=== PATIENT | female | born 1980 | race American Indian/Alaskan Native ===

== ENCOUNTER 2017-05-06 16:40 | Emergency (ER) | payer BC ==
[2017-05-06] MEDS ORDERED: Sodium Chloride 0.9% 10 ML Syringe FLUSH PRN (17:52)
[2017-05-06] MEDS ORDERED: Ketorolac 30 MG/ML SDV IVPUSH ONE (17:53)
[2017-05-06] MEDS ORDERED: Ondansetron 4 MG/2 ML SDV IV ONE (17:53)
[2017-05-06] MEDS ORDERED: Sodium Chloride 0.9% 1,000 ML IV ONE (17:53)
[2017-05-06 18:29] LABS: ANION GAP 12.1; CHLORIDE,CL 103 mmol/L (101-111); SODIUM,NA 138 mmol/L (135-145)
[2017-05-06 19:16] VITALS: BP 127/70
--- NOTE | 2017-05-07 09:04 | EDM.PDOC ---
Scribed by Lili Quintana 05/06/17 [id number] for Ade Can NP ED HPI GENERAL MEDICAL PROBLEM - General Chief Complaint: Headache Stated Complaint: HEADACHE [phone] Time Seen by Provider: 05/06/17 17:35 Source of Information: Reports: Patient, RN, RN Notes Reviewed History Limitations: Reports: No Limitations - History of Present Illness INITIAL COMMENTS - FREE TEXT/NARRATIVE: Patient presents to ER with complaint of a headache since Tuesday. It is pulsating as if her head is going to explode. She has had nausea and vomiting. This is "worst headache ever". She has tried Excedrin migraine OTC without any help. She has had chills and diarrhea. She has no chest pain or shortness of breath. She denies any numbness, tingling or vision symptoms. Location: Reports: Head Quality: Reports: Ache Severity: Severe Improves with: Reports: None Worsens with: Reports: None Associated Symptoms: Reports: No Other Symptoms Headache Pain Score (Numeric/FACES): 7 - Related Data Allergies Allergy/AdvReac Type Severity Reaction Status Date / Time calero Allergy Hives Verified 05/06/17 17:02 Home Meds: Home Meds FLUoxetine [PROzac] 2 tab PO DAILY 04/01/16 [History] Ibuprofen 200 mg PO Q6HR PRN 04/01/16 [History] Past Medical History - Past Health History Medical/Surgical History: Denies Medical/Surgical History HEENT History: Reports: None Cardiovascular History: Reports: None Respiratory History: Reports: None Gastrointestinal History: Reports: GERD, Irritable Bowel Syndrome Genitourinary History: Reports: None 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 Tattoo's - Infectious Disease History Infectious Disease History: Reports: Chicken Pox - Past Surgical History Head Surgeries/Procedures: Reports: None Cardiovascular Surgical History: Reports: None Female Surgical History: Reports: None Musculoskeletal Surgical History: Reports: Other (See Below) Social & Family History - Family History Family Medical History: Noncontributory - Tobacco Use Smoking Status *Q: Former Smoker Years of Tobacco use: 6 Used Tobacco, but Quit: Yes Month Tobacco Last Used: ? Second Hand Smoke Exposure: No - Caffeine Use Caffeine Use: Reports: Coffee - Recreational Drug Use Recreational Drug Use: No ED ROS GENERAL - Review of Systems Review Of Systems: ROS reveals no pertinent complaints other than HPI. - Physical Exam Exam: See Below Exam Limited By: No Limitations General Appearance: Moderate Distress, Other (tearful) Eye Exam: Bilateral Eye: Normal Inspection Ears: Normal External Exam, Normal Canal, Hearing Grossly Normal, Normal TMs Nose: Normal Inspection, Normal Mucosa, No Blood Throat/Mouth: Normal Inspection, Normal Lips, Normal Teeth, Normal Gums, Normal Oropharynx, Normal Voice, No Airway Compromise Head Exam: Atraumatic, Normocephalic Neck: Normal Inspection, Supple, Non-Tender, Full Range of Motion Respiratory/Chest: No Respiratory Distress, Lungs Clear, Normal Breath Sounds, No Accessory Muscle Use, Chest Non-Tender Cardiovascular: Normal Peripheral Pulses, Regular Rate, Rhythm, No Edema, No Gallop, No JVD, No Murmur, No Rub GI/Abdominal: Normal Bowel Sounds, Soft, Non-Tender, No Organomegaly, No Distention, No Abnormal Bruit, No Mass (Female) Exam: Deferred Rectal (Female) Exam: Deferred Neuro Exam (Abbreviated): Alert, Oriented, CN II-XII Intact, Normal Cognition, Normal Gait, Normal Reflexes, No Motor/Sensory Deficits Back Exam: Normal Inspection, Full Range of Motion, NT Extremities: Normal Inspection, Normal Range of Motion, Non-Tender, No Pedal Edema, Normal Capillary Refill Psychiatric: Tearful Skin Exam: Warm, Dry, Intact, Normal Color, No Rash Course - Vital Signs Last Recorded V/S: Last Vital Signs Temp 97.4 F 05/06/17 19:15 Pulse 79 05/06/17 19:15 Resp 18 05/06/17 19:15 BP 127/70 05/06/17 19:15 Pulse Ox 100 05/06/17 19:15 - Orders/Labs/Meds Orders: Active Orders 24 hr Category Date Time Status Peripheral IV Care [RC] . DIRECTED Care 05/06/17 17:53 Active Peripheral IV Insertion Adult [OM.PC] Stat Oth 05/06/17 17:52 Ordered Labs: Laboratory Tests 05/06/17 05/06/17 05/06/17 Range/Units 17:47 17:47 18:04 WBC 11.1 H (5.0-10.0) 10^3/uL RBC 4.69 (4.2-5.4) 10^6/uL Hgb 13.2 (12.0-16.0) g/dL Hct 39.8 (37.0-47.0) % MCV 84.9 (80-100) fL MCH 28.1 (27.0-34.0) pg MCHC 33.2 (33.0-35.0) g/dL Plt Count 232 (150-450) 10^3/uL Neut % (Auto) 68.3 (42.2-75.2) % Lymph % (Auto) 25.0 (20.5-50.1) % Logan % (Auto) 5.6 (2-8) % Eos % (Auto) 0.9 L (1.0-3.0) % Baso % (Auto) 0.2 (0.0-1.0) % Sodium 138 (135-145) mmol/L Potassium 3.1 L (3.6-5.0) mmol/L Chloride 103 (101-111) mmol/L Carbon Dioxide 26.0 (21.0-31.0) mmol/L Anion Gap 12.1 BUN 9 (7-18) mg/dL Creatinine 0.6 (0.6-1.3) mg/dL Est Cr Clr Drug Dosing 129.50 mL/min Estimated GFR (MDRD) > 60 BUN/Creatinine Ratio 15.00 Glucose 129 H (74-105) mg/dL Calcium 8.4 (8.4-10.2) mg/dl Total Bilirubin 0.6 (0.2-1.0) mg/dL AST 28 (10-42) IU/L ALT 29 (10-60) IU/L Alkaline Phosphatase 87 (42-121) IU/L Total Protein 6.8 (6.7-8.2) g/dl Albumin 4.2 (3.2-5.5) g/dl Globulin 2.6 Albumin/Globulin Ratio 1.62 Urine Color (YELLOW) Urine Appearance (CLEAR) Urine pH (5.0-9.0) Ur Specific [place] (1.005-1.030) Urine Protein (NEGATIVE) Urine Glucose (UA) (NEGATIVE) Urine Ketones (NEGATIVE) Urine Occult Blood (NEGATIVE) Urine Nitrite (NEGATIVE) Urine Bilirubin (NEGATIVE) Urine Urobilinogen (0.2-1.0) mg/dL Ur Leukocyte Esterase (NEGATIVE) Urine RBC /HPF Urine WBC (0-5/HPF) /HPF Ur Epithelial Cells /HPF Urine Bacteria (0-FEW/HPF) /HPF Urine Mucus /LPF Urine HCG, Qual Negative 05/06/17 Range/Units 18:04 WBC (5.0-10.0) 10^3/uL RBC (4.2-5.4) 10^6/uL Hgb (12.0-16.0) g/dL Hct (37.0-47.0) % MCV (80-100) fL MCH (27.0-34.0) pg MCHC (33.0-35.0) g/dL Plt Count (150-450) 10^3/uL Neut % (Auto) (42.2-75.2) % Lymph % (Auto) (20.5-50.1) % Logan % (Auto) (2-8) % Eos % (Auto) (1.0-3.0) % Baso % (Auto) (0.0-1.0) % Sodium (135-145) mmol/L Potassium (3.6-5.0) mmol/L Chloride (101-111) mmol/L Carbon Dioxide (21.0-31.0) mmol/L Anion Gap BUN (7-18) mg/dL Creatinine (0.6-1.3) mg/dL Est Cr Clr Drug Dosing mL/min Estimated GFR (MDRD) BUN/Creatinine Ratio Glucose (74-105) mg/dL Calcium (8.4-10.2) mg/dl Total Bilirubin (0.2-1.0) mg/dL AST (10-42) IU/L ALT (10-60) IU/L Alkaline Phosphatase (42-121) IU/L Total Protein (6.7-8.2) g/dl Albumin (3.2-5.5) g/dl Globulin Albumin/Globulin Ratio Urine Color Yellow (YELLOW) Urine Appearance Slightly cloudy (CLEAR) Urine pH 7.0 (5.0-9.0) Ur Specific [place] 1.015 (1.005-1.030) Urine Protein Negative (NEGATIVE) Urine Glucose (UA) Negative (NEGATIVE) Urine Ketones Negative (NEGATIVE) Urine Occult Blood Moderate H (NEGATIVE) Urine Nitrite Negative (NEGATIVE) Urine Bilirubin Negative (NEGATIVE) Urine Urobilinogen 0.2 (0.2-1.0) mg/dL Ur Leukocyte Esterase Negative (NEGATIVE) Urine RBC 20-30 H /HPF Urine WBC 0-5 (0-5/HPF) /HPF Ur Epithelial Cells Few /HPF Urine Bacteria Few (0-FEW/HPF) /HPF Urine Mucus Few H /LPF Urine HCG, Qual Meds: Medications Discontinued Medications Generic Name Dose Route Start Last Admin Trade Name Freq PRN Reason Stop Dose Admin Sodium Chloride 1,000 mls @ 999 mls/hr 05/06/17 17:53 05/06/17 18:10 Normal Saline IV 05/06/17 18:53 999 mls/hr .BOLUS ONE Administration Ketorolac Tromethamine 30 mg 05/06/17 17:53 05/06/17 18:09 Toradol IVPUSH 05/06/17 17:54 30 mg ONETIME ONE Administration Ondansetron HCl 4 mg 05/06/17 17:53 05/06/17 18:09 Zofran IV 05/06/17 17:54 4 mg ONETIME ONE Administration Sodium Chloride 10 ml 05/06/17 17:52 05/06/17 18:10 Saline Flush FLUSH 10 ml ASDIRECTED PRN Administration Keep Vein Open - Radiology Interpretation Free Text/Narrative:: Head CT w/o contrast: No acute findings See rad report Departure - Departure Time of Disposition: 18:53 Disposition: Home, Self-Care 01 Condition: Fair Clinical Impression: Migraine - Discharge Information Instructions: Recurrent Migraine Headache, [id number] Referrals: Amparo Unger [Primary Care Provider] - Forms: ED Department Discharge Additional Instructions: Tylenol or ibuprofen as directed Drink plenty of fluids Rest in a dark room Follow up with your primary care facility next week - My Orders Last 24 Hours: My Active Orders 05/06/17 17:52 Peripheral IV Insertion Adult [OM.PC] Stat 05/06/17 17:53 Peripheral IV Care [RC] . DIRECTED - Assessment/Plan Last 24 Hours: My Active Orders 05/06/17 17:52 Peripheral IV Insertion Adult [OM.PC] Stat 05/06/17 17:53 Peripheral IV Care [RC] . DIRECTED I have read and agree with the documentation that has been completed regarding this visit. By signing this record, I attest that the documentation was completed in my physical presence and is an accurate record of the encounter.
== END 2017-05-06 19:19 | disposition home or self-care (01) ==
LOC: DL.ED 16:40
DX: G43.909 Migraine, unspecified, not intractable, without status migrainosus (principal); F41.9 Anxiety disorder, unspecified; Z87.891 Personal history of nicotine dependence; Z91.018 Allergy to other foods
CPT/HCPCS: 36415; 70450; 80053; 81001; 81025; 85025; 96361; 96374; 96375; 99284; J1885; J2405; J7030; J7050